=== PATIENT | male | born 1955 | race Caucasian/White ===

== ENCOUNTER 2017-01-30 16:00 | Outpatient (RCR) | payer OTHER, SELFPAY ==
--- NOTE | 2017-01-28 09:39 | HP.OTEVAL_ITS ---
Patient's Visit Information RICHI MUNSON is a 62 year old M, referred to Occupational Therapy by Out of Town Doctor,JOSE ENRIQUE EUGENE, with a diagnosis of left 5th digit sprain. Date of Evaluation: 01/27/17 Occupational Therapist: Uzma Pabon, QUIRINOR/Edel, CHT - Subjective Subjective: Pt was seen for inital OT evaluation for a 5th MCP strain. Pt states injury happend at work in Sep. pt cont to use hand and pain would get worse. pt is employed at [employer] and has worked there since 1987. 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 - Pain left hand 0 Pain Intensity Range: 0, 8 - ROM MP: left LF 90 right 90 PIP: left LF 90 right 90 DIP: left LF90 right 90 ROM Comments: no demo limitations with flex measurments. little finger adduction is paiful - Strength Sales Representative Facility Services: right 90 left 65# with pain Lateral Pinch: right 18# left 14# Tripod Pinch: Right 8# left 10# - Hand/Wrist Evaluation Total Score of Pain & Functional Sections: 38 - Goals Goal:: pt will demo a increase in left physicist acoustics strength to 80# or greater with no increase in pain to increase pts independence with all work tasks by d/c Goal:: pt will report pain no greater than 1/10 with work tasks by d/c - Rehabilitation General Assessment: pt demo with ROM WFL but pain in left MCP region with resistance- this limits his ind. with all functional work tasks- Rehabilitation Potential: Good - Anticipated Interventions Anticipated Interventions: Strengthening, Triggerpoint Release, Modalities, Orthoses, Ergonomic Education - Visit Plan Frequency: 3x /Week Duration: 4 Months General Plan: initiate modalitites to decrease pain and incrase healing to return pt to PLOF TEXT: Thank you for the opportunity to evaluate your patient. For Medicare and Medicare HMO plans, please review the plan of care and approve it. It will need to be FAXED BACK to us at [phone] for Medicare purposes. Please let me know if there are questions or concerns regarding this plan of care. Physician Signature: Date:
--- NOTE | 2017-07-15 14:42 | HP.OT.NRP ---
HP - Discharge Summary - Patient Information RICHI MUNSON was seen in my office for initial evaluation on 01/27/17. The following Plan of Care was established for this patient: Initial Frequency: 3x /Week Initial Duration: 4 Months Plan: Increase strength and decrease pain - Anticipated Interventions Anticipated Interventions: Strengthening, Triggerpoint Release, Modalities, Orthoses, Ergonomic Education This patient was last seen in our office 01/30/17. Pertinent comments regarding their Occupational therapy will appear below: Pt was seen for 2 OT visits- cancelled 1 apt and NO showed last scheduled apt- pt D/C at this time due to non attendace At this point I will be discontinuing this patient from occupational therapy. I would be happy to see this patient again in the future if found appropriate by the physician. Thank you! Uzma Pabon, OTR/L, CHT
== END 2017-01-30 19:00 | disposition home or self-care (01) ==
LOC: OT 16:00
PROVIDERS: PCP Family Medicine
DX: S63.657A Sprain of metacarpophalangeal joint of left little finger, initial encounter (principal)
CPT/HCPCS: 97035; 97140; 97166